=== PATIENT | female | born 1955 ===

== ENCOUNTER 2016-12-08 15:43 | Emergency (ER) | payer MEDICAID ==
--- NOTE | 2016-12-08 16:44 | C.PDOC ---
History Of Present Illness 61 y/o female presents to the ED with complains of right lower leg pain x1 week. Pain is at anterior medial leg. Pt denies injury, fever, chills, calf pain or any other complaints. Chief Complaint (Nursing): Lower Extremity Problem/Injury History Per: Patient History/Exam Limitations: no limitations Onset/Duration Of Symptoms: Days Current Symptoms Are (Timing): Still Present Severity: Moderate Recent travel outside of the [place]: No Past Medical History Reviewed: Historical Data, Nursing Documentation, Vital Signs Vital Signs: Last Vital Signs Temp 98.1 F 12/08/16 18:57 Pulse 72 12/08/16 18:57 Resp 18 12/08/16 18:57 BP 124/75 12/08/16 18:57 Pulse Ox 98 12/08/16 18:57 - Medical History PMH: Anemia, Anxiety, Asthma, Bronchitis, Depression, Gastritis, HIV, Osteoporosis Surgical History: - [facility] Procedures COLONOSCOPY (12/27/13) DRAINAGE OF FACE SUBCU/FASCIA, OPEN APPROACH (08/14/15) ENDO RECTUM POLYPECTOMY (09/30/14) ESOPHAGOGASTRODUODENOSCOPY [EGD] W/CLOSED BIOPSY (12/19/14) HEMORRHOIDECTOMY (09/30/14) Family History: States: Unknown Family Hx - Social History Hx Tobacco Use: No Hx Alcohol Use: No Hx Substance Use: No - Immunization History Hx Tetanus Toxoid Vaccination: No Hx Influenza Vaccination: Yes Hx Pneumococcal Vaccination: No Review Of Systems Except As Marked, All Systems Reviewed And Found Negative. Constitutional: Negative for: Fever, Chills Musculoskeletal: Positive for: Leg Pain (right anterior lower leg pain) Physical Exam - Physical Exam Appears: Non-toxic, No Acute Distress Skin: Warm, Dry, No Rash Head: Atraumatic, Normacephalic Neck: Normal, Normal ROM Chest: Symmetrical Cardiovascular: Rhythm Regular, No Murmur Respiratory: Normal Breath Sounds, No Rales, No Rhonchi, No Wheezing Gastrointestinal/Abdominal: Normal Exam, Soft, No Tenderness Extremity: Normal ROM, No Calf Tenderness, No Swelling, Other (mild erythema and tenderness to right anterior medial lower leg, no open sores or ulcers) Pulses: Left Dorsalis Pedis: Normal, Right Dorsalis Pedis: Normal Neurological/Psych: Oriented x3, Normal Motor, Normal Sensation ED Course And Treatment O2 Sat by Pulse Oximetry: 96 (room air) Pulse Ox Interpretation: Normal - Other Rad Tib/fib X-Ray: Interpreted by Me Interpretation: No fx, no lesions Progress Note: Plan: keflex, XR tibia/fibula, motrin. Possible cellulitis. Disposition - Disposition Disposition: HOME/ ROUTINE Disposition Time: 18:45 Condition: STABLE Additional Instructions: Follow up with PMD within 1-2 days. Return to ED if feel worse. Prescriptions: Cephalexin [cephalexin] 500 mg PO Q6 #28 cap traMADol [Ultram] 50 mg PO Q6 #30 tab Instructions: Cellulitis (ED) - Clinical Impression Clinical Impression: Cellulitis - PA / PAINT FORMULATOR / Resident Statement MD/DO has reviewed & agrees with the documentation as recorded. - Scribe Statement The provider has reviewed the documentation as recorded by the Scribsalina Babcock All medical record entries made by the Divinaibsalina were at my direction and personally dictated by me. I have reviewed the chart and agree that the record accurately reflects my personal performance of the history, physical exam, medical decision making, and the department course for this patient. I have also personally directed, reviewed, and agree with the discharge instructions and disposition.
[2016-12-08 18:58] VITALS: BP 124/75; PULSE 72; RESP 18; TEMP 98.1
[2016-12-08 23:11] VITALS: O2SAT 96
--- NOTE | 2016-12-09 10:54 | RAD ---
PROCEDURE: Radiographs of the right tibia and fibula. HISTORY: Pain. No history of recent/ related trauma provided COMPARISON: None available. TECHNIQUE: Frontal and lateral views obtained. FINDINGS: BONES: No fracture or destructive lesion. JOINT SPACES: Unremarkable. OTHER FINDINGS: None. IMPRESSION: No significant or acute findings to account for/ related to the clinical presentation.
== END 2016-12-08 18:59 | disposition home or self-care (01) ==
LOC: C.ER 15:43
DX: L03.115 Cellulitis of right lower limb (principal)

== ENCOUNTER 2017-06-02 18:45 | Inpatient (IN) | payer MEDICAID ==
[2017-06-02 18:46] VITALS: BMI 23.0
[2017-06-02] MEDS ORDERED: Albuterol-Ipratrop 3 mg / 0.5 (3 ml) UD ONE ×2 (19:07→19:59)
[2017-06-02] MEDS ORDERED: Albuterol-Ipratrop 3 mg / 0.5 (3 ml) UD INH STA ×2 (19:10→19:59)
--- NOTE | 2017-06-02 19:15 | C.PDOC ---
History Of Present Illness Patient with PMHx of HIV presents to ED with complaints of intermittent sob and wheezing for 1.5 weeks with associated non productive cough. Patient is speaking in complete sentences and states she was seen at [place] 3 days ago for similar complaints and had a chest xray that was negative as well as a negative influenza/strep test. Patient states her CD4 count is "good" and denies fever, chills or any other complaints at this time. Time Seen by Provider: 06/02/17 19:15 Chief Complaint (Nursing): Cough, Cold, Congestion History Per: Patient History/Exam Limitations: no limitations Onset/Duration Of Symptoms: Days (10), Intermittent Episodes Current Symptoms Are (Timing): Still Present Initiating Event: Upper Respiratory Illness Exacerbating Factor(s): Coughing Current Respiratory Medications: See Home Med List Severity: Moderate Pain Scale Rating Of: 4 Associated Symptoms: denies: Fever, Chills Reports Recently: Seen In ED (05/30/17), Treated By A Physician Recent travel outside of the [place]: No Additional History Per: Patient Past Medical History Reviewed: Historical Data, Nursing Documentation, Vital Signs Vital Signs: Last Vital Signs Temp 97.7 F 06/02/17 18:47 Pulse 80 06/02/17 19:29 Resp 16 06/02/17 19:55 BP 116/79 06/02/17 19:29 Pulse Ox 99 06/02/17 19:58 - Medical History PMH: Anemia, Anxiety, Asthma, Bronchitis, Depression, Gastritis, HIV, Osteoporosis Surgical History: - [facility] Procedures COLONOSCOPY (12/27/13) DRAINAGE OF FACE SUBCU/FASCIA, OPEN APPROACH (08/14/15) ENDO RECTUM POLYPECTOMY (09/30/14) ESOPHAGOGASTRODUODENOSCOPY [EGD] W/CLOSED BIOPSY (12/19/14) HEMORRHOIDECTOMY (09/30/14) Family History: States: No Known Family Hx - Social History Hx Tobacco Use: No Hx Alcohol Use: No Hx Substance Use: No - Immunization History Hx Tetanus Toxoid Vaccination: No Hx Influenza Vaccination: Yes Hx Pneumococcal Vaccination: No Review Of Systems Constitutional: Negative for: Fever, Chills Eyes: Negative for: Redness ENT: Negative for: Throat Pain Cardiovascular: Negative for: Chest Pain Respiratory: Positive for: Cough, Shortness of Breath, Wheezing Gastrointestinal: Negative for: Nausea, Vomiting Genitourinary: Negative for: Dysuria Musculoskeletal: Negative for: Back Pain Skin: Negative for: Rash Neurological: Negative for: Weakness Psych: Negative for: Anxiety Physical Exam - Physical Exam Appears: Non-toxic, No Acute Distress Skin: Warm, Dry, No Rash Head: Normacephalic Eye(s): bilateral: Normal Inspection Oral Mucosa: Moist Throat: No Erythema, No Exudate Neck: Supple Chest: Symmetrical Cardiovascular: Rhythm Regular Respiratory: No Rales, No Rhonchi, Wheezing (scattered) Gastrointestinal/Abdominal: Soft, No Tenderness, No Distention, No Guarding, No Rebound Back: Normal Inspection Extremity: Normal ROM Extremity: Bilateral: Atraumatic, Normal Color And Temperature, Normal ROM Pulses: Left Dorsalis Pedis: Normal, Right Dorsalis Pedis: Normal Neurological/Psych: Oriented x3, Normal Speech (Speaking in full sentences), Normal Cognition Gait: Steady ED Course And Treatment - Laboratory Results Result Diagrams: 06/02/17 19:29 06/02/17 19:29 ECG: Interpreted By Me, Viewed By Me ECG Rhythm: Sinus Rhythm (82), Nonspecific Changes O2 Sat by Pulse Oximetry: 99 (RA) Pulse Ox Interpretation: Normal - Radiology CXR: Interpreted by Me, Viewed By Me CXR Interpretation: Yes: Other (unchnaged from 05/30/17). No: Infiltrates, Fracture, Pnemothorax Disposition Discussed With : Tino Zhou Comment: accepted the pt on his service and took over the care at 8:45 PM Doctor Will See Patient In The: Hospital Counseled Patient/Family Regarding: Studies Performed, Diagnosis - Disposition Disposition: HOSPITALIZED Disposition Time: 19:15 Condition: FAIR Forms: [facility] ([place]) - POA Present On Arrival: None - Clinical Impression Clinical Impression: Acute bronchitis, Dyspnea - Scribe Statement The provider has reviewed the documentation as recorded by the Divinaibe Queenie Serrano All medical record entries made by the Divinaibsalina were at my direction and personally dictated by me. I have reviewed the chart and agree that the record accurately reflects my personal performance of the history, physical exam, medical decision making, and the department course for this patient. I have also personally directed, reviewed, and agree with the discharge instructions and disposition. Decision To Admit - Pt Status Changed To: Hospital Disposition Of: Observation - . Bed Request Type: Regular Admitting Physician: Tino Zhou Patient Diagnosis: Acute bronchitis, Dyspnea
[2017-06-02 19:34] LABS: BASO % 0.8 % (0.0-2.0); EOS # 0.1 K/uL (0.0-0.7); EOS % 1.5 % (0.0-4.0); HEMATOCRIT 31.7 % (34.0-47.0); LYMPH # 1.5 K/uL (1.0-4.3); LYMPH % 35.1 % (20.0-40.0); MEAN CELL VOLUME 75.9 fL (81.0-99.0); MEAN CORPUSCULAR HEMOGLOBIN 24.7 pg (27.0-31.0); MEAN CORPUSCULAR HGB CONC 32.5 g/dL (33.0-37.0); MEAN PLATELET VOLUME 7.5 fL (7.2-11.7); MONO # 0.3 K/uL (0.0-0.8); MONO % 6.7 % (0.0-10.0); RED CELL DISTRIBUTION WIDTH 15.2 % (11.5-14.5); WHITE BLOOD COUNT 4.3 K/uL (4.8-10.8)
[2017-06-02 19:44] LABS: ALKALINE PHOSPHATASE 106 U/L (38-126); ALT/SGPT 43 U/L (9-52); AST/SGOT 39 U/L (14-36); BILIRUBIN,TOTAL 0.6 mg/dL (0.2-1.3); BLOOD UREA NITROGEN 15 mg/dL (7-17); CALCIUM 9.3 mg/dl (8.6-10.4); CARBON DIOXIDE 24 mmol/L (22-30); CHLORIDE 98 mmol/L (98-107); GFR AFRICAN-AMERICAN > 60; GLUCOSE,RANDOM 93 mg/dL (65-105); SODIUM 134 mmol/L (132-148); TOTAL PROTEIN 8.3 g/dL (6.3-8.3)
[2017-06-02 19:50] LABS: ALB/GLOB RATIO 1.2 (1.0-2.1)
[2017-06-02 19:57] LABS: INR 1.1
[2017-06-02] MEDS: Albuterol-Ipratrop 3 mg / 0.5 (3 ml) UD IH SCH (20:08)
[2017-06-02] MEDS ORDERED: Promethazine/Cod 6.25mg-10mg/5ml Syr UD PO STA (20:32)
[2017-06-02] MEDS ORDERED: Promethazine/Cod 6.25mg-10mg/5ml Syr UD ONE (20:33)
[2017-06-02] MEDS ORDERED: cefTRIAXone IV 1 gm in Dextros 50 ML IVPB ONE ×2 (20:46→20:53)
[2017-06-02 21:03] LABS: ABG ALLEN TEST POS; DRAW SITE RRA
--- NOTE | 2017-06-02 22:45 | CP.PCM.HP ---
History of Present Illness - History of Present Illness History of Present Illness: CC: cough, whwwzing, shortness of breath associated with chills, rigors, thick whitish spurun HPI: is a 61 year old female with PMHx of HIV on anti retroviral drugs, HTn, Hyperlipidemia, complaint with diet, meds , follow up presents to ED with complaints of intermittent sob and wheezing for 1.5 weeks with associated fever, chills,rigors. Patient is speaking in complete sentences and states she was seen at [place] 3 days ago for similar complaints and had a chest xray that was negative as well as a negative influenza/strep test. Patient states her CD4 count is "good".Pt denies any PMH of bronchial asthma Present on Admission - Present on Admission Any Indicators Present on Admission: Yes Review of Systems - Review of Systems Systems not reviewed;Unavailable: Respiratory Distress - Constitutional Constitutional: Chills, Fatigue, Fever, Lethargy, Malaise - EENT Eyes: absent: As Per HPI, Blind Spots, Blurred Vision, Change in Vision, Decreased Night Vision, Diplopia, Discharge, Dry Eye, Exophthalmos, Floaters, Irritation, Itchy Eyes, Loss of Peripheral Vision, Pain, Photophobia, Requires Corrective Lenses, Sees Flashes, Spots in Vision, Tunnel Vision, Other Visual Disturbances, Loss of Vision, Other Ears: absent: As Per HPI, Decreased Hearing, Ear Discharge, Ear Pain, Tinnitus, Abnormal Hearing, Disequilibrium, Dizziness, Other Nose/Mouth/Throat: absent: As Per HPI, Epistaxis, Nasal Congestion, Nasal Discharge, Nasal Obstruction, Nasal Trauma, Nose Pain, Post Nasal Drip, Sinus Pain, Sinus Pressure, Bleeding Gums, Change in Voice, Dental Pain, Dry Mouth, Dysphagia, Halitosis, Hoarsness, Lip Swelling, Mouth Lesions, Mouth Pain, Odynophagia, Sore Throat, Throat Swelling, Tongue Swelling, Facial Pain, Neck Pain, Neck Mass, Other - Respiratory Respiratory: Cough, Dyspnea, Dyspnea on Exertion, Wheezing, Chest Congestion - Gastrointestinal Gastrointestinal: absent: As Per HPI, Abdominal Pain, Belching, Bloating, Change in Bowel Habits, Change in Stool Character, Coffee Ground Emesis, Constipation, Cramping, Diarrhea, Dyspepsia, Dysphagia, Early Satiety, Excessive Flatus, Fecal Incontinence, Heartburn, Hematemesis, Hematochezia, Loose Stools, Melena, Nausea, Odynophagia, Temesmus, Vomiting, Other Past Patient History - Infectious Disease Hx of Infectious Diseases: None - Past Medical History & Family History Past Medical History?: Yes - Past Social History Smoking Status: Never Smoked - CARDIAC Hx Cardiac Disorders: No - PULMONARY Hx Asthma: Yes Hx Bronchitis: Yes - NEUROLOGICAL Hx Neurological Disorder: No - HEENT Hx HEENT Problems: Yes Hx Cataracts: Yes - ENDOCRINE/METABOLIC Hx Endocrine Disorders: No - HEMATOLOGICAL/ONCOLOGICAL Hx Anemia: Yes Hx Human Immunodeficiency Virus (HIV): Yes - INTEGUMENTARY Hx Dermatological Problems: No - MUSCULOSKELETAL/RHEUMATOLOGICAL Hx Osteoporosis: Yes - GASTROINTESTINAL Hx Gastritis: Yes - GENITOURINARY/GYNECOLOGICAL Hx Genitourinary Disorders: No - PSYCHIATRIC Hx Anxiety: Yes Hx Depression: Yes Hx Substance Use: No - SURGICAL HISTORY Hx Surgeries: Yes Hx Hysterectomy: Yes Other/Comment: Hemmoroidectomy(2014); Skin graft to face due to aly - ANESTHESIA Hx Anesthesia: Yes Hx Anesthesia Reactions: Yes (n/v) Meds Allergies/Adverse Reactions: Allergies Allergy/AdvReac Type Severity Reaction Status Date / Time No Known Allergies Allergy Verified 06/02/17 18:50 Physical Exam - Constitutional Appears: No Acute Distress - Head Exam Head Exam: ATRAUMATIC, NORMAL INSPECTION, NORMOCEPHALIC - Eye Exam Eye Exam: EOMI, Normal appearance, PERRL Pupil Exam: NORMAL ACCOMODATION, PERRL - Respiratory Exam Respiratory Exam: Decreased Breath Sounds, Rhonchi, Wheezes - Cardiovascular Exam Cardiovascular Exam: REGULAR RHYTHM - GI/Abdominal Exam GI & Abdominal Exam: Normal Bowel Sounds, Soft. absent: Tenderness Results - Vital Signs Recent Vital Signs: Last Vital Signs Temp 97.7 F 06/02/17 18:47 Pulse 99 H 06/02/17 21:27 Resp 20 06/02/17 21:27 BP 109/54 L 06/02/17 21:27 Pulse Ox 96 06/02/17 21:27 - Labs Result Diagrams: 06/02/17 19:29 06/02/17 19:29 Labs: Laboratory Results - last 24 hr 06/02/17 06/02/17 06/02/17 19:29 19:29 19:29 WBC 4.3 L RBC 4.17 Hgb 10.3 L Hct 31.7 L MCV 75.9 L D MCH 24.7 L MCHC 32.5 L RDW 15.2 H Plt Count 181 MPV 7.5 Neut % (Auto) 55.9 Lymph % (Auto) 35.1 [place] % (Auto) 6.7 Eos % (Auto) 1.5 Baso % (Auto) 0.8 Neut # 2.4 Lymph # 1.5 [place] # 0.3 Eos # 0.1 Baso # 0.0 PT 12.1 INR 1.1 APTT 35 H Puncture Site pCO2 pO2 HCO3 ABG pH ABG Total CO2 ABG O2 Saturation ABG Base Excess Nirav Test ABG Potassium A-a O2 Difference Respiratory Index Glucose Lactate Liter Flow FiO2 Sodium 134 Potassium 4.0 Chloride 98 Carbon Dioxide 24 Anion Gap 16 BUN 15 Creatinine 0.8 Est GFR ( Amer) > 60 Est GFR (Non-Af Amer) > 60 Random Glucose 93 Calcium 9.3 Total Bilirubin 0.6 AST 39 H ALT 43 Alkaline Phosphatase 106 Total Protein 8.3 Albumin 4.5 Globulin 3.9 Albumin/Globulin Ratio 1.2 Arterial Blood Potassium 06/02/17 21:00 WBC RBC Hgb Hct MCV MCH MCHC RDW Plt Count MPV Neut % (Auto) Lymph % (Auto) [place] % (Auto) Eos % (Auto) Baso % (Auto) Neut # Lymph # [place] # Eos # Baso # PT INR APTT Puncture Site Rra pCO2 38 pO2 94 HCO3 26.3 ABG pH 7.44 ABG Total CO2 27.0 ABG O2 Saturation 99.1 H ABG Base Excess 1.7 Nirav Test Pos ABG Potassium 3.3 L A-a O2 Difference 94.0 Respiratory Index 1.0 Glucose 181 H Lactate 1.8 Liter Flow 4.0 FiO2 33.0 Sodium 138.0 Potassium Chloride 108.0 H Carbon Dioxide Anion Gap BUN Creatinine Est GFR ( Amer) Est GFR (Non-Af Amer) Random Glucose Calcium Total Bilirubin AST ALT Alkaline Phosphatase Total Protein Albumin Globulin Albumin/Globulin Ratio Arterial Blood Potassium 3.3 L Assessment & Plan (1) HTN (hypertension) Status: Acute (2) Acute bronchitis Status: Acute (3) Dyspnea Status: Acute (4) HIV (human immunodeficiency virus infection) Status: Chronic
[2017-06-02] MEDS ORDERED: Albuterol HFA 90 mcg/actuation (8 g) IH PRN (22:48)
[2017-06-03] MEDS: Albuterol-Ipratrop 3 mg / 0.5 (3 ml) UD INH SCH ×3 (07:33→20:13)
--- NOTE | 2017-06-03 08:08 | RAD ---
PROCEDURE: CHEST RADIOGRAPH, 1 VIEW HISTORY: Shortness of breath COMPARISON: 07/13/2016 FINDINGS: LUNGS: Mild venous congestion. Patchy increased markings at the left lung base. PLEURA: No pneumothorax or pleural fluid seen. CARDIOVASCULAR: Normal. OSSEOUS STRUCTURES: No significant abnormalities. VISUALIZED UPPER ABDOMEN: Normal. OTHER FINDINGS: None. IMPRESSION: Mild venous congestion. Patchy increased markings at the left lung base.
[2017-06-03] MEDS: Emtricitabine-Tenofovir 200 mg-300 mg Tab PO SCH (09:36)
[2017-06-03] MEDS: Enoxaparin 40 mg Syringe SC SCH (09:36)
[2017-06-03] MEDS: Azithromycin 500 MG in Sodium Chloride 0.9% 250 ML IVPB SCH (09:51)
[2017-06-03] MEDS: cefTRIAXone IV 1 gm in Dextros 50 ML IVPB SCH (09:52)
[2017-06-03] MEDS: Fluticasone Nasal 50 mcg/Spray NAS SCH (09:55)
[2017-06-03] MEDS ORDERED: [UNRECOGNIZED DRUG - OTHER] PO SCH (10:00)
[2017-06-03] MEDS ORDERED: MOMETASONE FUROATE 0.05 MG NS SCH (10:00)
--- NOTE | 2017-06-03 10:09 | CARD ---
APPROVED REPORT EKG Measurement Heart [id number] <Conclusion> Normal sinus rhythm Possible Left atrial enlargement Borderline ECG
[2017-06-03] MEDS ORDERED: Benzocaine/Menthol (Cepacol) Lozenge MT PRN (11:44)
--- NOTE | 2017-06-03 23:31 | CP.PCM.PN ---
Subjective - Date & Time of Evaluation Date of Evaluation: 06/03/17 Time of Evaluation: 18:00 - Subjective Subjective: Pt seen and evalauted, coughing, wheezing and c/o sob Objective - Vital Signs/Intake and Output Vital Signs (last 24 hours): Temp Pulse Resp BP Pulse Ox 97.7 F 78 20 110/66 96 06/03/17 07:47 06/03/17 07:52 06/03/17 07:47 06/03/17 07:47 06/03/17 07:47 Intake and Output: 06/03/17 06/04/17 18:59 06:59 Intake Total 540 300 Balance 540 300 - Medications Medications: Current Medications Acetaminophen (Tylenol 325mg Tab) 325 mg PO Q6H PRN PRN Reason: Pain, Mild (1-3) Albuterol (Ventolin Hfa 90 Mcg/Actuation (8 G)) 2 puff IH RQ6 PRN PRN Reason: Shortness of Breath Albuterol/Ipratropium (Duoneb 3 Mg/0.5 Mg (3 Ml) Ud) 3 ml INH RQ6 [facility] Last Admin: 06/03/17 20:13 Dose: 3 ml Alprazolam (Xanax) 1 mg PO BID [facility] Last Admin: 06/03/17 18:49 Dose: 1 mg Benzocaine/Menthol (Cepacol Sore Throat) 1 davie MT Q4 PRN PRN Reason: Sore Throat Emtricitabine/Tenofovir (Truvada 200 Mg-300 Mg) 1 tab PO DAILY [facility] Last Admin: 06/03/17 09:36 Dose: 1 tab Enoxaparin Sodium (Lovenox) 40 mg SC DAILY [facility] Last Admin: 06/03/17 09:36 Dose: 40 mg Ferrous Sulfate (Feosol) 325 mg PO TID [facility] Last Admin: 06/03/17 18:48 Dose: 325 mg Fluticasone Propionate (Flonase) 1 spr MIGUEL DAILY [facility] Last Admin: 06/03/17 09:55 Dose: 1 spr Guaifenesin (Robitussin) 200 mg PO Q4H PRN PRN Reason: Cough and congestion Ceftriaxone Sodium (Rocephin Iv 1 Gm Duplex) 50 mls @ 100 mls/hr IVPB DAILY [facility] Last Admin: 06/03/17 09:52 Dose: 100 mls/hr Azithromycin 500 mg/ Sodium (Chloride) 250 mls @ 250 mls/hr IVPB DAILY [facility] Last Admin: 06/03/17 09:51 Dose: 250 mls/hr Methylprednisolone (Solu-Medrol) 60 mg IV Q12 [facility] Last Admin: 06/03/17 22:03 Dose: 60 mg Nelfinavir Mesylate (Viracept) 1,250 mg PO BID [facility] Last Admin: 06/03/17 18:50 Dose: 1,250 mg Tramadol HCl (Ultram) 50 mg PO Q6 [facility] Last Admin: 06/03/17 18:48 Dose: 50 mg Zolpidem Tartrate (Ambien) 5 mg PO HS [facility] Last Admin: 06/03/17 22:02 Dose: 5 mg - Labs Labs: 06/02/17 19:29 06/02/17 19:29 PT 12.1 SECONDS (9.7-12.2) 06/02/17 19:29 INR 1.1 06/02/17 19:29 APTT 35 SECONDS (21-34) H 06/02/17 19:29 - Constitutional Appears: No Acute Distress - Head Exam Head Exam: ATRAUMATIC, NORMAL INSPECTION, NORMOCEPHALIC - Eye Exam Eye Exam: EOMI, Normal appearance, PERRL Pupil Exam: NORMAL ACCOMODATION, PERRL - Respiratory Exam Respiratory Exam: Decreased Breath Sounds, Rhonchi, Wheezes - Cardiovascular Exam Cardiovascular Exam: REGULAR RHYTHM, +S1, +S2. absent: Murmur - GI/Abdominal Exam GI & Abdominal Exam: Soft, Normal Bowel Sounds. absent: Tenderness Assessment and Plan (1) Acute bronchitis Assessment & Plan: rule out pnemonia Status: Acute (2) Dyspnea Status: Acute (3) HTN (hypertension) Status: Acute (4) Generalized weakness Status: Acute (5) HIV (human immunodeficiency virus infection) Status: Chronic
[2017-06-04] MEDS: Albuterol-Ipratrop 3 mg / 0.5 (3 ml) UD INH SCH ×4 (01:40→20:06)
[2017-06-04 06:46] LABS: HEMATOCRIT 30.6 % (34.0-47.0); LYMPH # 0.6 K/uL (1.0-4.3); LYMPH % 3.9 % (20.0-40.0); MEAN CELL VOLUME 75.8 fL (81.0-99.0); MEAN CORPUSCULAR HEMOGLOBIN 24.9 pg (27.0-31.0); MEAN CORPUSCULAR HGB CONC 32.9 g/dL (33.0-37.0); MONO # 0.3 K/uL (0.0-0.8); MONO % 1.9 % (0.0-10.0); PLATELET COUNT 231 K/uL (130-400); RED CELL DISTRIBUTION WIDTH 14.9 % (11.5-14.5); WHITE BLOOD COUNT 15.4 K/uL (4.8-10.8)
[2017-06-04 06:56] LABS: BLOOD UREA NITROGEN 16 mg/dL (7-17); CARBON DIOXIDE 22 mmol/L (22-30); CHLORIDE 103 mmol/L (98-107); GFR AFRICAN-AMERICAN > 60; GLUCOSE,RANDOM 130 mg/dL (65-105); POTASSIUM 4.2 mmol/L (3.6-5.2); SODIUM 135 mmol/L (132-148)
[2017-06-04] MEDS: guaiFENesin 200 mg/10 ml Syrup UD PO PRN ×2 (07:54→12:16)
[2017-06-04 08:58] LABS: NEUTROPHIL 96 % (50-75); TOTAL CELLS COUNTED 100
[2017-06-04 09:00] LABS: LARGE PLATELETS PRESENT
[2017-06-04] MEDS: Enoxaparin 40 mg Syringe SC SCH (09:54)
[2017-06-04] MEDS: cefTRIAXone IV 1 gm in Dextros 50 ML IVPB SCH (09:56)
[2017-06-04] MEDS: Azithromycin 500 MG in Sodium Chloride 0.9% 250 ML IVPB SCH (09:56)
[2017-06-04] MEDS: Emtricitabine-Tenofovir 200 mg-300 mg Tab PO SCH (09:59)
[2017-06-04] MEDS: Fluticasone Nasal 50 mcg/Spray NAS SCH (10:00)
--- NOTE | 2017-06-04 12:48 | CP.PCM.CON ---
History of Present Illness - History of Present Illness History of Present Illness: Reason for consultation: Shortness of breath 61-year-old female with past medical history of hypertension, hyperlipidemia, HIV positive presented to emergency room complaining of shortness of breath, wheezing and fever. Patient states that she was initially seen in [place] the similar complaints. Review of Systems - Review of Systems All systems: reviewed and no additional remarkable complaints except (Shortness of breath and cough) Past Patient History - Infectious Disease Hx of Infectious Diseases: None - Past Medical History & Family History Past Medical History?: Yes - Past Social History Smoking Status: Never Smoked - CARDIAC Hx Cardiac Disorders: No - PULMONARY Hx Asthma: Yes Hx Bronchitis: Yes - NEUROLOGICAL Hx Neurological Disorder: No - HEENT Hx HEENT Problems: Yes Hx Cataracts: Yes - ENDOCRINE/METABOLIC Hx Endocrine Disorders: No - HEMATOLOGICAL/ONCOLOGICAL Hx Anemia: Yes Hx Human Immunodeficiency Virus (HIV): Yes - INTEGUMENTARY Hx Dermatological Problems: No - MUSCULOSKELETAL/RHEUMATOLOGICAL Hx Osteoporosis: Yes - GASTROINTESTINAL Hx Gastritis: Yes - GENITOURINARY/GYNECOLOGICAL Hx Genitourinary Disorders: No - PSYCHIATRIC Hx Anxiety: Yes Hx Depression: Yes Hx Substance Use: No - SURGICAL HISTORY Hx Surgeries: Yes Hx Hysterectomy: Yes Other/Comment: Hemmoroidectomy(2015); Skin graft to face due to aly - ANESTHESIA Hx Anesthesia: Yes Hx Anesthesia Reactions: Yes (n/v) Meds Allergies/Adverse Reactions: Allergies Allergy/AdvReac Type Severity Reaction Status Date / Time No Known Allergies Allergy Verified 06/02/17 18:50 - Medications Medications: Current Medications Acetaminophen (Tylenol 325mg Tab) 325 mg PO Q6H PRN PRN Reason: Pain, Mild (1-3) Albuterol (Ventolin Hfa 90 Mcg/Actuation (8 G)) 2 puff IH RQ6 PRN PRN Reason: Shortness of Breath Albuterol/Ipratropium (Duoneb 3 Mg/0.5 Mg (3 Ml) Ud) 3 ml INH RQ6 [facility] Last Admin: 06/04/17 07:43 Dose: 3 ml Alprazolam (Xanax) 1 mg PO BID [facility] Last Admin: 06/04/17 09:53 Dose: 1 mg Benzocaine/Menthol (Cepacol Sore Throat) 1 davie MT Q4 PRN PRN Reason: Sore Throat Emtricitabine/Tenofovir (Truvada 200 Mg-300 Mg) 1 tab PO DAILY [facility] Last Admin: 06/04/17 09:59 Dose: 1 tab Enoxaparin Sodium (Lovenox) 40 mg SC DAILY [facility] Last Admin: 06/04/17 09:54 Dose: 40 mg Ferrous Sulfate (Feosol) 325 mg PO TID [facility] Last Admin: 06/04/17 09:54 Dose: 325 mg Fluticasone Propionate (Flonase) 1 spr MIGUEL DAILY [facility] Last Admin: 06/04/17 10:00 Dose: 1 spr Ceftriaxone Sodium (Rocephin Iv 1 Gm Duplex) 50 mls @ 100 mls/hr IVPB DAILY [facility] Last Admin: 06/04/17 09:56 Dose: 100 mls/hr Azithromycin 500 mg/ Sodium (Chloride) 250 mls @ 250 mls/hr IVPB DAILY [facility] Last Admin: 06/04/17 09:56 Dose: 250 mls/hr Methylprednisolone (Solu-Medrol) 60 mg IV Q12 [facility] Last Admin: 06/04/17 09:53 Dose: 60 mg Nelfinavir Mesylate (Viracept) 1,250 mg PO BID [facility] Last Admin: 06/04/17 09:55 Dose: 1,250 mg Promethazine HCl/Codeine (Phenergan/Codeine Oral Syrup) 5 ml PO Q4 PRN PRN Reason: Cough Tramadol HCl (Ultram) 50 mg PO Q6 [facility] Last Admin: 06/04/17 12:17 Dose: 50 mg Physical Exam - Constitutional Appears: No Acute Distress - Head Exam Head Exam: ATRAUMATIC, NORMOCEPHALIC - ENT Exam ENT Exam: Mucous Membranes Moist - Respiratory Exam Respiratory Exam: Clear to Auscultation Bilateral - Cardiovascular Exam Cardiovascular Exam: REGULAR RHYTHM - GI/Abdominal Exam GI & Abdominal Exam: Normal Bowel Sounds, Soft - Extremities Exam Extremities exam: Positive for: normal inspection - Neurological Exam Neurological exam: Alert, Oriented x3 Results - Vital Signs Recent Vital Signs: Last Vital Signs Temp 98.5 F 06/04/17 08:12 Pulse 83 06/04/17 08:12 Resp 21 06/04/17 08:12 BP 110/71 06/04/17 08:12 Pulse Ox 98 06/04/17 08:12 - Labs Result Diagrams: 06/04/17 06:35 06/04/17 06:35 Labs: Laboratory Results - last 24 hr 06/04/17 06/04/17 06:35 06:35 WBC 15.4 H D RBC 4.04 Hgb 10.1 L Hct 30.6 L MCV 75.8 L MCH 24.9 L MCHC 32.9 L RDW 14.9 H Plt Count 231 MPV 8.0 Neut % (Auto) 94.2 H Lymph % (Auto) 3.9 L [place] % (Auto) 1.9 Eos % (Auto) 0.0 Baso % (Auto) 0.0 Neut # 14.5 H Lymph # 0.6 L [place] # 0.3 Eos # 0.0 Baso # 0.0 Neutrophils % (Manual) 96 H Lymphocytes % (Manual) 3 L Monocytes % (Manual) 1 Toxic Granulation Present Platelet Estimate Normal Large Platelets Present Hypochromasia (manual) Slight Poikilocytosis (manual Slight Anisocytosis (manual) Slight Ovalocytes Slight Sodium 135 Potassium 4.2 Chloride 103 Carbon Dioxide 22 Anion Gap 14 BUN 16 Creatinine 0.7 Est GFR ( Amer) > 60 Est GFR (Non-Af Amer) > 60 Random Glucose 130 H Calcium 9.0 Assessment & Plan (1) Dyspnea Status: Acute Comment: 61-year-old female presented with shortness of breath, cough and fever. Chest x-ray consistent with increased markings in the left base. Continue antibiotics. Continue IV steroids and neb treatment. Repeat chest x- ray (2) HIV (human immunodeficiency virus infection) Status: Chronic
[2017-06-04] MEDS: Magnesium Hydroxide Susp 30 ml UD PO PRN (14:11)
--- NOTE | 2017-06-04 23:09 | CP.PCM.PN ---
Subjective - Date & Time of Evaluation Date of Evaluation: 06/04/17 Time of Evaluation: 02:30 - Subjective Subjective: Pt is less coughing, less short of breath Objective - Vital Signs/Intake and Output Vital Signs (last 24 hours): Temp Pulse Resp BP Pulse Ox 98 F 78 20 112/62 95 06/04/17 17:17 06/04/17 17:17 06/04/17 17:17 06/04/17 17:17 06/04/17 17:17 - Medications Medications: Current Medications Acetaminophen (Tylenol 325mg Tab) 325 mg PO Q6H PRN PRN Reason: Pain, Mild (1-3) Albuterol (Ventolin Hfa 90 Mcg/Actuation (8 G)) 2 puff IH RQ6 PRN PRN Reason: Shortness of Breath Albuterol/Ipratropium (Duoneb 3 Mg/0.5 Mg (3 Ml) Ud) 3 ml INH RQ6 [facility] Last Admin: 06/04/17 20:06 Dose: 3 ml Alprazolam (Xanax) 1 mg PO BID [facility] Last Admin: 06/04/17 18:12 Dose: 1 mg Benzocaine/Menthol (Cepacol Sore Throat) 1 davie MT Q4 PRN PRN Reason: Sore Throat Emtricitabine/Tenofovir (Truvada 200 Mg-300 Mg) 1 tab PO DAILY [facility] Last Admin: 06/04/17 09:59 Dose: 1 tab Enoxaparin Sodium (Lovenox) 40 mg SC DAILY [facility] Last Admin: 06/04/17 09:54 Dose: 40 mg Ferrous Sulfate (Feosol) 325 mg PO TID [facility] Last Admin: 06/04/17 18:11 Dose: 325 mg Fluticasone Propionate (Flonase) 1 spr MIGUEL DAILY [facility] Last Admin: 06/04/17 10:00 Dose: 1 spr Ceftriaxone Sodium (Rocephin Iv 1 Gm Duplex) 50 mls @ 100 mls/hr IVPB DAILY [facility] Last Admin: 06/04/17 09:56 Dose: 100 mls/hr Azithromycin 500 mg/ Sodium (Chloride) 250 mls @ 250 mls/hr IVPB DAILY [facility] Last Admin: 06/04/17 09:56 Dose: 250 mls/hr Magnesium Hydroxide (Milk Of Magnesia) 30 ml PO DAILY PRN PRN Reason: Constipation Last Admin: 06/04/17 14:11 Dose: 30 ml Methylprednisolone (Solu-Medrol) 60 mg IV Q12 [facility] Last Admin: 06/04/17 09:53 Dose: 60 mg Nelfinavir Mesylate (Viracept) 1,250 mg PO BID [facility] Last Admin: 06/04/17 18:11 Dose: 1,250 mg Promethazine HCl/Codeine (Phenergan/Codeine Oral Syrup) 5 ml PO Q4 PRN PRN Reason: Cough Sodium Phosphate (Fleet Enema) 135 ml [place] DAILY PRN PRN Reason: Constipation Tramadol HCl (Ultram) 50 mg PO Q6 [facility] Last Admin: 06/04/17 18:11 Dose: 50 mg Zolpidem Tartrate (Ambien) 5 mg PO HS PRN PRN Reason: Insomnia - Labs Labs: 06/04/17 06:35 06/04/17 06:35 PT 12.1 SECONDS (9.7-12.2) 06/02/17 19:29 INR 1.1 06/02/17 19:29 APTT 35 SECONDS (21-34) H 06/02/17 19:29 - Constitutional Appears: No Acute Distress - Head Exam Head Exam: ATRAUMATIC, NORMAL INSPECTION, NORMOCEPHALIC - Respiratory Exam Respiratory Exam: Decreased Breath Sounds, Rhonchi - Cardiovascular Exam Cardiovascular Exam: REGULAR RHYTHM, +S1, +S2. absent: Murmur - GI/Abdominal Exam GI & Abdominal Exam: Soft, Normal Bowel Sounds. absent: Tenderness Assessment and Plan (1) HTN (hypertension) Status: Acute (2) Acute bronchitis Status: Acute (3) Dyspnea Status: Acute (4) HIV (human immunodeficiency virus infection) Assessment & Plan: on HAART Status: Chronic (5) Acute tracheobronchitis Assessment & Plan: on antibiotics Status: Acute
[2017-06-05] MEDS: Albuterol-Ipratrop 3 mg / 0.5 (3 ml) UD INH SCH ×4 (01:45→20:01)
[2017-06-05] MEDS: Enoxaparin 40 mg Syringe SC SCH (09:28)
[2017-06-05] MEDS: Emtricitabine-Tenofovir 200 mg-300 mg Tab PO SCH (09:28)
[2017-06-05] MEDS: cefTRIAXone IV 1 gm in Dextros 50 ML IVPB SCH (09:28)
[2017-06-05] MEDS: Azithromycin 500 MG in Sodium Chloride 0.9% 250 ML IVPB SCH (09:29)
[2017-06-05] MEDS: Magnesium Hydroxide Susp 30 ml UD PO PRN (09:33)
[2017-06-05] MEDS: Fluticasone Nasal 50 mcg/Spray NAS SCH (09:48)
[2017-06-05] MEDS: Promethazine/Cod 6.25mg-10mg/5ml Syr UD PO PRN ×3 (09:50→21:42)
--- NOTE | 2017-06-05 18:06 | CP.PCM.PN ---
Subjective - Date & Time of Evaluation Date of Evaluation: 06/05/17 Time of Evaluation: 18:07 - Subjective Subjective: Pt seen and examined, is still coughing, less short of breath Objective - Vital Signs/Intake and Output Vital Signs (last 24 hours): Temp Pulse Resp BP Pulse Ox 98.1 F 75 20 104/65 97 06/05/17 16:49 06/05/17 16:49 06/05/17 16:49 06/05/17 16:49 06/05/17 16:49 Intake and Output: 06/05/17 06/05/17 06:59 18:59 Intake Total 540 Balance 540 - Medications Medications: Current Medications Acetaminophen (Tylenol 325mg Tab) 325 mg PO Q6H PRN PRN Reason: Pain, Mild (1-3) Albuterol (Ventolin Hfa 90 Mcg/Actuation (8 G)) 2 puff IH RQ6 PRN PRN Reason: Shortness of Breath Albuterol/Ipratropium (Duoneb 3 Mg/0.5 Mg (3 Ml) Ud) 3 ml INH RQ6 [facility] Last Admin: 06/05/17 13:43 Dose: 3 ml Alprazolam (Xanax) 1 mg PO BID [facility] Last Admin: 06/05/17 17:23 Dose: 1 mg Benzocaine/Menthol (Cepacol Sore Throat) 1 davie MT Q4 PRN PRN Reason: Sore Throat Emtricitabine/Tenofovir (Truvada 200 Mg-300 Mg) 1 tab PO DAILY [facility] Last Admin: 06/05/17 09:28 Dose: 1 tab Enoxaparin Sodium (Lovenox) 40 mg SC DAILY [facility] Last Admin: 06/05/17 09:28 Dose: 40 mg Ferrous Sulfate (Feosol) 325 mg PO TID [facility] Last Admin: 06/05/17 17:23 Dose: 325 mg Fluticasone Propionate (Flonase) 1 spr MIGUEL DAILY [facility] Last Admin: 06/05/17 09:48 Dose: 1 spr Ceftriaxone Sodium (Rocephin Iv 1 Gm Duplex) 50 mls @ 100 mls/hr IVPB DAILY [facility] Last Admin: 06/05/17 09:28 Dose: 100 mls/hr Azithromycin 500 mg/ Sodium (Chloride) 250 mls @ 250 mls/hr IVPB DAILY [facility] Last Admin: 06/05/17 09:29 Dose: 250 mls/hr Magnesium Hydroxide (Milk Of Magnesia) 30 ml PO DAILY PRN PRN Reason: Constipation Last Admin: 06/05/17 09:33 Dose: 30 ml Methylprednisolone (Solu-Medrol) 60 mg IV Q12 [facility] Last Admin: 06/05/17 09:30 Dose: 60 mg Nelfinavir Mesylate (Viracept) 1,250 mg PO BID [facility] Last Admin: 06/05/17 17:22 Dose: 1,250 mg Promethazine HCl/Codeine (Phenergan/Codeine Oral Syrup) 5 ml PO Q4 PRN PRN Reason: Cough Last Admin: 06/05/17 17:22 Dose: 5 ml Sodium Phosphate (Fleet Enema) 135 ml [place] DAILY PRN PRN Reason: Constipation Last Admin: 06/04/17 23:17 Dose: 135 ml Tramadol HCl (Ultram) 50 mg PO Q6 [facility] Last Admin: 06/05/17 13:47 Dose: 50 mg Zolpidem Tartrate (Ambien) 5 mg PO HS PRN PRN Reason: Insomnia Last Admin: 06/05/17 00:09 Dose: 5 mg - Labs Labs: 06/04/17 06:35 06/04/17 06:35 PT 12.1 SECONDS (9.7-12.2) 06/02/17 19:29 INR 1.1 06/02/17 19:29 APTT 35 SECONDS (21-34) H 06/02/17 19:29 - Constitutional Appears: No Acute Distress - Head Exam Head Exam: ATRAUMATIC, NORMAL INSPECTION, NORMOCEPHALIC - Eye Exam Eye Exam: EOMI, Normal appearance, PERRL Pupil Exam: NORMAL ACCOMODATION, PERRL - Respiratory Exam Respiratory Exam: Decreased Breath Sounds, Rhonchi, NORMAL BREATHING PATTERN - Cardiovascular Exam Cardiovascular Exam: REGULAR RHYTHM, +S1, +S2. absent: Murmur - GI/Abdominal Exam GI & Abdominal Exam: Soft, Normal Bowel Sounds. absent: Tenderness Assessment and Plan (1) HTN (hypertension) Status: Acute (2) Acute bronchitis Status: Acute (3) Dyspnea Status: Acute (4) HIV (human immunodeficiency virus infection) Status: Chronic (5) Acute tracheobronchitis Status: Acute (6) Constipation Assessment & Plan: rectal enema Status: Acute - Assessment and Plan (Free Text) Plan: PLan: enema, ambein, salmedrol, antibiotics
[2017-06-06] MEDS: Albuterol-Ipratrop 3 mg / 0.5 (3 ml) UD INH SCH ×4 (01:33→19:36)
[2017-06-06] MEDS: Emtricitabine-Tenofovir 200 mg-300 mg Tab PO SCH (09:27)
[2017-06-06] MEDS: Enoxaparin 40 mg Syringe SC SCH (09:28)
[2017-06-06] MEDS: cefTRIAXone IV 1 gm in Dextros 50 ML IVPB SCH (09:28)
[2017-06-06] MEDS: Azithromycin 500 MG in Sodium Chloride 0.9% 250 ML IVPB SCH (09:29)
[2017-06-06] MEDS: Fluticasone Nasal 50 mcg/Spray NAS SCH (09:33)
[2017-06-06] MEDS: Promethazine/Cod 6.25mg-10mg/5ml Syr UD PO PRN ×4 (09:34→21:05)
[2017-06-06] MEDS: MethylPREDNISolone 40 mg Vial IV SCH (17:51)
--- NOTE | 2017-06-06 23:27 | CP.PCM.PN ---
Subjective - Date & Time of Evaluation Date of Evaluation: 06/06/17 Time of Evaluation: 18:00 - Subjective Subjective: Pt seen and evalauted Objective - Vital Signs/Intake and Output Vital Signs (last 24 hours): Temp Pulse Resp BP Pulse Ox 99.7 F H 126 H 22 162/88 H 92 L 06/06/17 16:00 06/06/17 16:00 06/06/17 16:00 06/06/17 16:00 06/06/17 16:00 - Medications Medications: Current Medications Acetaminophen (Tylenol 325mg Tab) 325 mg PO Q6H PRN PRN Reason: Pain, Mild (1-3) Albuterol (Ventolin Hfa 90 Mcg/Actuation (8 G)) 2 puff IH RQ6 PRN PRN Reason: Shortness of Breath Albuterol/Ipratropium (Duoneb 3 Mg/0.5 Mg (3 Ml) Ud) 3 ml INH RQ6 [facility] Last Admin: 06/06/17 19:36 Dose: 3 ml Alprazolam (Xanax) 1 mg PO BID [facility] Last Admin: 06/06/17 17:45 Dose: 1 mg Benzocaine/Menthol (Cepacol Sore Throat) 1 davie MT Q4 PRN PRN Reason: Sore Throat Docusate Sodium (Colace) 100 mg PO BID [facility] Last Admin: 06/06/17 17:44 Dose: 100 mg Emtricitabine/Tenofovir (Truvada 200 Mg-300 Mg) 1 tab PO DAILY [facility] Last Admin: 06/06/17 09:27 Dose: 1 tab Enoxaparin Sodium (Lovenox) 40 mg SC DAILY [facility] Last Admin: 06/06/17 09:28 Dose: 40 mg Ferrous Sulfate (Feosol) 325 mg PO TID [facility] Last Admin: 06/06/17 17:44 Dose: 325 mg Fluticasone Propionate (Flonase) 1 spr MIGUEL DAILY [facility] Last Admin: 06/06/17 09:33 Dose: 1 spr Ceftriaxone Sodium (Rocephin Iv 1 Gm Duplex) 50 mls @ 100 mls/hr IVPB DAILY [facility] Last Admin: 06/06/17 09:28 Dose: 100 mls/hr Azithromycin 500 mg/ Sodium (Chloride) 250 mls @ 250 mls/hr IVPB DAILY [facility] Last Admin: 06/06/17 09:29 Dose: 250 mls/hr Magnesium Hydroxide (Milk Of Magnesia) 30 ml PO DAILY PRN PRN Reason: Constipation Last Admin: 06/05/17 09:33 Dose: 30 ml Methylprednisolone (Solu-Medrol) 40 mg IV Q12H [facility] Last Admin: 06/06/17 17:51 Dose: 40 mg Nelfinavir Mesylate (Viracept) 1,250 mg PO BID [facility] Last Admin: 06/06/17 17:51 Dose: 1,250 mg Promethazine HCl/Codeine (Phenergan/Codeine Oral Syrup) 5 ml PO Q4 PRN PRN Reason: Cough Last Admin: 06/06/17 21:05 Dose: 5 ml Sodium Phosphate (Fleet Enema) 135 ml [place] DAILY PRN PRN Reason: Constipation Last Admin: 06/04/17 23:17 Dose: 135 ml Tramadol HCl (Ultram) 50 mg PO Q6 [facility] Last Admin: 06/06/17 17:45 Dose: 50 mg Zolpidem Tartrate (Ambien) 5 mg PO HS PRN PRN Reason: Insomnia Last Admin: 06/06/17 21:05 Dose: 5 mg - Labs Labs: 06/04/17 06:35 06/04/17 06:35 PT 12.1 SECONDS (9.7-12.2) 06/02/17 19:29 INR 1.1 06/02/17 19:29 APTT 35 SECONDS (21-34) H 06/02/17 19:29 Assessment and Plan (1) HTN (hypertension) Status: Acute (2) Acute bronchitis Status: Acute (3) Dyspnea Status: Acute (4) HIV (human immunodeficiency virus infection) Status: Chronic (5) Acute tracheobronchitis Status: Acute (6) Constipation Status: Acute
[2017-06-07] MEDS: Albuterol-Ipratrop 3 mg / 0.5 (3 ml) UD INH SCH ×3 (01:22→13:22)
[2017-06-07] MEDS: MethylPREDNISolone 40 mg Vial IV SCH (05:19)
[2017-06-07 07:42] LABS: BASO % 0.1 % (0.0-2.0); HEMATOCRIT 35.4 % (34.0-47.0); LYMPH # 0.9 K/uL (1.0-4.3); LYMPH % 4.5 % (20.0-40.0); MEAN CELL VOLUME 75.4 fL (81.0-99.0); MEAN CORPUSCULAR HEMOGLOBIN 24.9 pg (27.0-31.0); MEAN PLATELET VOLUME 7.7 fL (7.2-11.7); MONO # 0.9 K/uL (0.0-0.8); MONO % 4.1 % (0.0-10.0); NRBC % 0.1 % (0.0-2.0); PLATELET COUNT 397 K/uL (130-400); WHITE BLOOD COUNT 20.9 K/uL (4.8-10.8)
[2017-06-07 08:23] LABS: BLOOD UREA NITROGEN 21 mg/dL (7-17); CALCIUM 8.9 mg/dl (8.6-10.4); CARBON DIOXIDE 24 mmol/L (22-30); CHLORIDE 98 mmol/L (98-107); GFR AFRICAN-AMERICAN > 60; GLUCOSE,RANDOM 107 mg/dL (65-105); POTASSIUM 4.1 mmol/L (3.6-5.2); SODIUM 135 mmol/L (132-148)
[2017-06-07 08:54] LABS: MYELOCYTE 2 % (0-0); NEUTROPHIL 91 % (50-75); TOTAL CELLS COUNTED 100
[2017-06-07 08:55] LABS: LARGE PLATELETS PRESENT
[2017-06-07] MEDS: Emtricitabine-Tenofovir 200 mg-300 mg Tab PO SCH (09:59)
[2017-06-07] MEDS: cefTRIAXone IV 1 gm in Dextros 50 ML IVPB SCH (10:01)
[2017-06-07] MEDS: Promethazine/Cod 6.25mg-10mg/5ml Syr UD PO PRN ×2 (10:01→14:51)
[2017-06-07] MEDS: Enoxaparin 40 mg Syringe SC SCH (10:01)
[2017-06-07] MEDS: Azithromycin 500 MG in Sodium Chloride 0.9% 250 ML IVPB SCH (10:02)
[2017-06-07] MEDS: Fluticasone Nasal 50 mcg/Spray NAS SCH (10:05)
[2017-06-07 10:23] LABS: ABG ALLEN TEST PO; ARTERIAL BLOOD HGB O2 SAT 90.4 % (95.0-98.0); DRAW SITE RRA; HHB 5.9 % (0.0-5.0); METHEMOGLOBIN 1.6 % (0.0-3.0)
--- NOTE | 2017-06-07 11:33 | CP.PCM.PN ---
Subjective - Date & Time of Evaluation Date of Evaluation: 06/07/17 Time of Evaluation: 11:33 - Subjective Subjective: Alert, awake, no sob or chest pains. Objective - Vital Signs/Intake and Output Vital Signs (last 24 hours): Temp Pulse Resp BP Pulse Ox 98.4 F 91 H 18 107/67 97 06/07/17 10:05 06/07/17 10:05 06/07/17 10:05 06/07/17 10:05 06/07/17 10:05 Intake and Output: 06/07/17 06/07/17 06:59 18:59 Intake Total 240 Balance 240 - Medications Medications: Current Medications Acetaminophen (Tylenol 325mg Tab) 325 mg PO Q6H PRN PRN Reason: Pain, Mild (1-3) Albuterol (Ventolin Hfa 90 Mcg/Actuation (8 G)) 2 puff IH RQ6 PRN PRN Reason: Shortness of Breath Albuterol/Ipratropium (Duoneb 3 Mg/0.5 Mg (3 Ml) Ud) 3 ml INH RQ6 [facility] Last Admin: 06/07/17 07:23 Dose: 3 ml Alprazolam (Xanax) 1 mg PO BID [facility] Last Admin: 06/07/17 09:59 Dose: 1 mg Benzocaine/Menthol (Cepacol Sore Throat) 1 davie MT Q4 PRN PRN Reason: Sore Throat Docusate Sodium (Colace) 100 mg PO BID [facility] Last Admin: 06/07/17 09:59 Dose: 100 mg Emtricitabine/Tenofovir (Truvada 200 Mg-300 Mg) 1 tab PO DAILY [facility] Last Admin: 06/07/17 09:59 Dose: 1 tab Enoxaparin Sodium (Lovenox) 40 mg SC DAILY [facility] Last Admin: 06/07/17 10:01 Dose: 40 mg Ferrous Sulfate (Feosol) 325 mg PO TID [facility] Last Admin: 06/07/17 09:59 Dose: 325 mg Fluticasone Propionate (Flonase) 1 spr MIGUEL DAILY [facility] Last Admin: 06/07/17 10:05 Dose: 1 spr Ceftriaxone Sodium (Rocephin Iv 1 Gm Duplex) 50 mls @ 100 mls/hr IVPB DAILY [facility] Last Admin: 06/07/17 10:01 Dose: 100 mls/hr Azithromycin 500 mg/ Sodium (Chloride) 250 mls @ 250 mls/hr IVPB DAILY [facility] Last Admin: 06/07/17 10:02 Dose: 250 mls/hr Magnesium Hydroxide (Milk Of Magnesia) 30 ml PO DAILY PRN PRN Reason: Constipation Last Admin: 06/05/17 09:33 Dose: 30 ml Methylprednisolone (Solu-Medrol) 40 mg IV Q12H [facility] Last Admin: 06/07/17 05:19 Dose: 40 mg Nelfinavir Mesylate (Viracept) 1,250 mg PO BID [facility] Last Admin: 06/07/17 10:00 Dose: 1,250 mg Promethazine HCl/Codeine (Phenergan/Codeine Oral Syrup) 5 ml PO Q4 PRN PRN Reason: Cough Last Admin: 06/07/17 10:01 Dose: 5 ml Sodium Phosphate (Fleet Enema) 135 ml [place] DAILY PRN PRN Reason: Constipation Last Admin: 06/04/17 23:17 Dose: 135 ml Tramadol HCl (Ultram) 50 mg PO Q6 [facility] Last Admin: 06/07/17 05:21 Dose: 50 mg Zolpidem Tartrate (Ambien) 5 mg PO HS PRN PRN Reason: Insomnia Last Admin: 06/06/17 21:05 Dose: 5 mg - Labs Labs: 06/07/17 07:29 06/07/17 07:29 PT 12.1 SECONDS (9.7-12.2) 06/02/17 19:29 INR 1.1 06/02/17 19:29 APTT 35 SECONDS (21-34) H 06/02/17 19:29 Assessment and Plan - Assessment and Plan (Free Text) Assessment: Patient is seen and examined. Alert, awake, no sob, wheezing or chest pains. Room air ABG is done which is with in normal limits. D/W DR Zhou, plan to discharge home today on amoxicillin and medrol dose pack. Advised to follow up with PMD in 1 week.
[2017-06-07 16:54] VITALS: BP 123/60; PULSE 77; RESP 20; TEMP 98; O2SAT 95
--- NOTE | 2017-06-07 23:22 | CP.PCM.DIS ---
Provider - Provider Date of Admission: 06/05/17 11:39 Attending physician: Tino Zhou MD Time Spent in preparation of Discharge (in minutes): 34 Diagnosis - Discharge Diagnosis (1) HTN (hypertension) Status: Acute (2) Acute bronchitis Status: Acute (3) Dyspnea Status: Acute (4) HIV (human immunodeficiency virus infection) Status: Chronic (5) Acute tracheobronchitis Status: Acute (6) Constipation Status: Acute Hospital Course - Lab Results Lab Results: Micro Results 06/02/17 21:00 Blood Blood Culture - Preliminary NO GROWTH AFTER 4 DAYS 06/02/17 20:30 Blood Blood Culture - Preliminary NO GROWTH AFTER 4 DAYS Most Recent Lab Values WBC 20.9 K/uL (4.8-10.8) H 06/07/17 07:29 RBC 4.70 Mil/uL (3.80-5.20) 06/07/17 07:29 Hgb 11.7 g/dL (11.0-16.0) 06/07/17 07: Hct 35.4 % (34.0-47.0) 06/07/17 07:29 MCV 75.4 fL (81.0-99.0) L 06/07/17 07:29 MCH 24.9 pg (27.0-31.0) L 06/07/17 07: MCHC 33.0 g/dL (33.0-37.0) 06/07/17 07:29 RDW 15.0 % (11.5-14.5) H 06/07/17 07:29 Plt Count 397 K/uL (130-400) D 06/07/17 07:29 MPV 7.7 fL (7.2-11.7) 06/07/17 07:29 Neut % (Auto) 91.3 % (50.0-75.0) H 06/07/17 07: Lymph % (Auto) 4.5 % (20.0-40.0) L 06/07/17 07: Coles % (Auto) 4.1 % (0.0-10.0) 06/07/17 07:29 Eos % (Auto) 0.0 % (0.0-4.0) 06/07/17 07: Baso % (Auto) 0.1 % (0.0-2.0) 06/07/17 07:29 Neut # 19.1 K/uL (1.8-7.0) H 06/07/17 07:29 Lymph # 0.9 K/uL (1.0-4.3) L 06/07/17 07:29 Coles # 0.9 K/uL (0.0-0.8) H 06/07/17 07:29 Eos # 0.0 K/uL (0.0-0.7) 06/07/17 07:29 Baso # 0.0 K/uL (0.0-0.2) 06/07/17 07:29 Neutrophils % (Manual) 91 % (50-75) H 06/07/17 07:29 Lymphocytes % (Manual) 2 % (20-40) L 06/07/17 07:29 Monocytes % (Manual) 5 % (0-10) 06/07/17 07:29 Myelocytes % 2 % (0-0) H 06/07/17 07:29 Toxic Granulation Present 06/04/17 06:35 Platelet Estimate Normal (NORMAL) 06/07/17 07:29 Large Platelets Present 06/07/17 07:29 Polychromasia Slight 06/07/17 07:29 Hypochromasia (manual) Slight 06/07/17 07:29 Poikilocytosis (manual Slight 06/07/17 07:29 Anisocytosis (manual) Slight 06/07/17 07:29 Ovalocytes Slight 06/07/17 07:29 PT 12.1 SECONDS (9.7-12.2) 06/02/17 19:29 INR 1.1 06/02/17 19:29 APTT 35 SECONDS (21-34) H 06/02/17 19:29 Puncture Site Rra 06/07/17 10:20 pCO2 37 mm/Hg (35-45) 06/07/17 10:20 pO2 54 mm/Hg (80-100) L 06/07/17 10:20 HCO3 29.6 mmol/L (21-28) H 06/07/17 10:20 ABG pH 7.51 (7.35-7.45) H 06/07/17 10:20 ABG Total CO2 30.6 mmol/L (22-28) H 06/07/17 10:20 ABG O2 Saturation 93.9 % (95-98) L 06/07/17 10:20 ABG Base Excess 6.2 mmol/L (-2.0-3.0) H 06/07/17 10:20 ABG Hemoglobin 11.1 g/dL (11.7-17.4) L 06/07/17 10:20 ABG Carboxyhemoglobin 2.0 % (0.5-1.5) H 06/07/17 10:20 POC ABG HHb (Measured) 5.9 % (0.0-5.0) H 06/07/17 10:20 ABG Methemoglobin 1.6 % (0.0-3.0) 06/07/17 10:20 Nirav Test Po 06/07/17 10:20 ABG Potassium 3.3 mmol/L (3.6-5.2) L 06/02/17 21:00 A-a O2 Difference 49.0 mm/Hg 06/07/17 10:20 Respiratory Index 0.9 06/07/17 10:20 Hgb O2 Saturation 90.4 % (95.0-98.0) L 06/07/17 10:20 Sodium 138.0 mmol/l (132-148) 06/02/17 21:00 Chloride 108.0 mmol/L (98-107) H 06/02/17 21:00 Glucose 181 mg/dl (65-105) H 06/02/17 21:00 Lactate 1.8 mmol/L (0.7-2.1) 06/02/17 21:00 Liter Flow 4.0 06/02/17 21:00 FiO2 21.0 % 06/07/17 10:20 Sodium 135 mmol/L (132-148) 06/07/17 07:29 Potassium 4.1 mmol/L (3.6-5.2) 06/07/17 07:29 Chloride 98 mmol/L (98-107) 06/07/17 07:29 Carbon Dioxide 24 mmol/L (22-30) 06/07/17 07:29 Anion Gap 17 (10-20) 06/07/17 07:29 BUN 21 mg/dL (7-17) H 06/07/17 07:29 Creatinine 0.7 mg/dL (0.7-1.2) 06/07/17 07:29 Est GFR ( Amer) > 60 06/07/17 07:29 Est GFR (Non-Af Amer) > 60 06/07/17 07:29 Random Glucose 107 mg/dL (65-105) H 06/07/17 07:29 Calcium 8.9 mg/dl (8.6-10.4) 06/07/17 07:29 Total Bilirubin 0.6 mg/dL (0.2-1.3) 06/02/17 19:29 AST 39 U/L (14-36) H 06/02/17 19:29 ALT 43 U/L (9-52) 06/02/17 19:29 Alkaline Phosphatase 106 U/L (38-126) 06/02/17 19:29 Total Protein 8.3 g/dL (6.3-8.3) 06/02/17 19:29 Albumin 4.5 g/dL (3.5-5.0) 06/02/17 19:29 Globulin 3.9 gm/dL (2.2-3.9) 06/02/17 19:29 Albumin/Globulin Ratio 1.2 (1.0-2.1) 06/02/17 19:29 Arterial Blood Potassium 3.3 mmol/L (3.6-5.2) L 06/02/17 21:00 - Hospital Course Hospital Course: Patient is seen and examined. Alert, awake, no sob, wheezing or chest pains. Room air ABG is done which is with in normal limits. , plan to discharge home today on amoxicillin and medrol dose pack. Advised to follow up with ME in 1 week. Discharge Exam - Head Exam Head Exam: ATRAUMATIC, NORMAL INSPECTION, NORMOCEPHALIC - ENT Exam ENT Exam: Mucous Membranes Moist - Respiratory Exam Respiratory Exam: Clear to PA & Lateral, NORMAL BREATHING PATTERN - Cardiovascular Exam Cardiovascular Exam: REGULAR RHYTHM, +S1, +S2 - GI/Abdominal Exam GI & Abdominal Exam: Normal Bowel Sounds Discharge Plan - Discharge Medications Prescriptions: Amoxicillin [Amoxil 500 mg Cap] 500 mg PO Q8H #21 cap Methylprednisolone [Medrol Dose Pack (21 tabs)] 4 mg PO DAILY #21 mg Promethazine/Codeine [Phenergan/Codeine Oral Syrup] 5 ml PO Q4 PRN #100 udc PRN Reason: Cough - Follow Up Plan Condition: FAIR Disposition: HOME/ ROUTINE Instructions: Amoxicillin (By mouth), Methylprednisolone (By mouth), Acute Bronchitis (GEN), Dyspnea (GEN) Additional Instructions: amoxicillin 500mg po q8 x7 days medrol dose pack robitussin 10 ml po TID prn for cough x 7 days follow up with PMD in 1 week Referrals: Tino Zhou MD [Staff Provider] -
== END 2017-06-07 17:45 | disposition home or self-care (01) | DRG 97 ==
LOC: C.ER 18:45 → C.9E 20:47 → C.3T 06-03 00:06 → OBSVTOIN 06-05 11:39
PROVIDERS: ADMIT Internal Medicine; ATTEND Internal Medicine
DX: J20.9 Acute bronchitis, unspecified (principal); I10 Essential (primary) hypertension; F32.9 Major depressive disorder, single episode, unspecified; F41.9 Anxiety disorder, unspecified; J45.909 Unspecified asthma, uncomplicated; K59.00 Constipation, unspecified; Z21 Asymptomatic human immunodeficiency virus [HIV] infection status; M81.0 Age-related osteoporosis without current pathological fracture; E78.5 Hyperlipidemia, unspecified